=== PATIENT | female | born 1965 | race Caucasian/White ===

== ENCOUNTER 2016-08-18 11:39 | Emergency (ER) | payer SELFPAY ==
[2016-08-18 11:44] VITALS: BP 121/70; BMI 26.3
--- NOTE | 2016-08-18 11:55 | DR.EXTPAIN ---
HPI - Time seen Time seen: 11:45 - PCP Primary Care Physician: ROSITA - Complaint/Symptoms Chief Complaint Doctor Comments: History as stated. Chief Complaint:: PT. TWISTED HER ANKLES LAST SATURDAY WHILE OUT IN THE [place]. PT. IS UNABLE TO BEAR WEIGHT TO RIGHT FOOT. RIGHT FOOT IS SWOLLEN AND BRUISED AND THE BRUISING EXTENDS UP RIGHT LEG. LEFT FOOT IS ALSO SWOLLEN AND BRUISED BUT THE PT. STATES SHE CAN BEAR WEIGHT TO LEFT FOOT. - Source History Provided: Patient - Mode of arrival Mode of Arrival: Wheelchair - Timing Onset of Chief Complaint: 08/11/16 PMH - PMH Past Medical History: No Past Surgical History: Yes Surgical History: , Other - Family History History of Family Medical Conditions: Yes Family Medical History: Cancer - Social History Does patient currently use any type of tobacco product: No Have you used tobacco products in the last 12 months: No Type of Tobacco Use: None Does any household member use tobacco: No Alcohol Use: None Do you use any recreational Drugs:: No Lives With: Spouse Lives Where: Home - infectious screening In the last 2 months have you had wt loss of >10#?: NO Have you had fever, night sweats or hemotysis?: No Have you traveled outside the country in the last 6 months?: No Isolation: Standard ROS - Review of Systems Constitutional: No Symptoms Reported Eyes: No Symptoms Reported ENTM: No Symptoms Reported Respiratoy: No Symptoms Reported Cardiovascular: No Symptoms Reported Gastrointestinal/Abdominal: No Symptoms Reported Genitourinary: No Symptoms Reported Neurological: No Symptoms Reported Musculoskeletal: Ankle (bilaterally, pain Right >left, ecchymosis bilaterally) Integumentary: No Symptoms Reported, Change in Color (ecchymosis) Hematologic/Lymphatic: No Symptoms Reported Endocrine: No Symptoms Reported Psychiatric: No Symptoms Reported All Other Systems: Reviewed and Negative PE - Vital Signs Vitals: Temperature 97.9 F Pulse Rate 98 Respiratory Rate 17 Blood Pressure 121/70 O2 Sat by Pulse Oximetry 98 - General Limitations: No Limitations General Appearance: Alert - Head Head Exam: Normal Inspection - Eyes Eye exam: Normal Appearance, PERRL, EOMI - ENT ENT Exam: Normal Exam - Neck Neck Exam: Normal Inspection, Full ROM - Chest Chest Inspection: Normal Inspection - Respiratory Respiratory Exam: Normal Lung Sounds Bilat Respiratory Exam: Bilateral Clear to Auscultation - Cardiovascular Cardiovascular Exam: Regular Rate, Normal Rhythm - Abdominal Exam Abdominal Exam: Normal Inspection Abdominal Tenderness: negative: RUQ, RLQ, LUQ, LLQ, Epigastrium, Suprapubic, Diffuse, Mild, Moderate, Severe, Other - Extremities Extremities Exam: Normal Inspection - Upper Extremities Shoulder Exam: Normal Inspection Arm Exam: Normal Inspection Elbow Exam: Normal Inspection Forearm Exam: Normal Inspection Hand Exam: Normal Inspection Neuromotor Exam: Normal Exam Neurosensory Exam: Normal Exam Hand Tendon Exam: Flexor Digitorium Profundus (Location) Upper Ext. Vascular Exam: Capillary Refill - Lower Extremities Hip/Pelvis Exam: Normal Inspection Upper Leg Exam: Normal Inspection Knee Exam: Normal Inspection Lower Leg Exam: Normal Inspection Ankle Exam: Tenderness, Swelling, Dislocation (bilaterally) Foot/Toe Exam: Normal Inspection, Full ROM (R>L) Neurovascular/Tendon Exam: Normal Capillary Refill Gait Exam: Observed and Normal - Back Back Exam: Normal Inspection - Neurological Neurological Exam: Alert, Oriented X3, CN II-XII Intact - Psychiatric Psychiatric Exam: Normal Affect - Skin Skin Exam: Warm, Dry, Intact Course - Treatment Treatment: Ankle stirrup cast - Reevaluation 1st: Improved ROR - XRAY XRAY Interpreted by: Self (Compound fracture of right lateral malleolus) Procedures - Procedure Comments Procedures: Ankle stirrup ortho glass splint - Diagnosis Discharge Problem: Fx lateral malleolus-closed Qualifiers: Encounter type: initial encounter Fracture alignment: displaced Laterality: right Qualified Code(s): S82.61XA - Displaced fracture of lateral malleolus of right fibula, initial encounter for closed fracture - Discharge Plan Condition: Stable - Follow ups/Referrals Follow ups/Referrals: NATHAN BECKER [Primary Care Provider] - 3 days - Instructions
--- NOTE | 2016-08-18 15:08 | RAD ---
HISTORY: Fall Study: Left ankle series Comparison: None Findings: No acute cortical disruption or dislocation can be identified. The ankle mortise remains well align ed. No significant soft tissue swelling or injury can be seen. The visualized portions of the talu s and calcaneus are unremarkable. IMPRESSION: 1. Negative exam. Reported By:
--- NOTE | 2016-08-18 15:10 | RAD ---
HISTORY: Fall and pain Study: Right ankle series Comparison: None Findings: The ankle mortise is intact. There is a slightly displaced fracture along the lateral malleolus with mild soft tissue swelling laterally. The medial malleolus is intact. IMPRESSION: Minimally displaced lateral malleolar fracture with moderate soft tissue swelling laterally. Reported By:
== END 2016-08-18 14:09 | disposition home or self-care (01) ==
LOC: ER 11:49
PROC: 2W3LX1Z Immobilization of Right Lower Extremity using Splint (ICD-10-PCS; principal; 2016-08-18)
DX: S82.61XA Displaced fracture of lateral malleolus of right fibula, initial encounter for closed fracture (principal); X50.0XXA Overexertion from strenuous movement or load, initial encounter; Y92.096 Garden or yard of other non-institutional residence as the place of occurrence of the external cause
CPT/HCPCS: 29515; 73610; 99282; 99283